=== PATIENT | female | born 1985 | race Caucasian/White ===

== ENCOUNTER 2018-02-08 10:16 | Day surgery (SDC) | payer OTHER, SELFPAY ==
--- NOTE | 2018-02-08 | EMB_PTH ---
PATIENT: NATHANIEL DANGELO LOC: [facility] [place] U#:[id number] AGE/SX: 32/F ROOM: RE02/08/[address]: Dr. Holly Fink MD : [id number] BED: DIS: 02/08/2018 SPEC #: [id number] RECD: 02/08/18 15:04 STATUS: DAMON BUTLERRenee #: [id number] DANA: 02/08/18 00:[address]: Holly Fink DEPT: SURGICAL PATHOLOGY RECD BY: Ramez Forman ENTERED: 02/08/18 15:04 SP TYPE: ENDOM BX/C LOBITO DR: Dr. Mauro An MD Tissues: Endometrium, NOS Procedures: Surgery Specimen Level IV HEADER OPERATION: Hysteroscopy, dilation and curettage, Stacy PRE-OP DIAGNOSIS: Menorrhagia, dysmenorrhea TISSUE SUBMITTED: Endometrial curettings MICROSCOPIC DIAGNOSIS Endometrium, curettings: Rare strips of benign superficial glandular epithelium. AM:jose antonio 02/09/18 COMMENT The specimen primarily consists of mucous. Clinical correlation is suggested. MICROSCOPIC DESCRIPTION Slides are reviewed. GROSS DESCRIPTION Received in fixative is one container labeled with the patient's name and designated endometrial curettings. The specimen consists of multiple fragments of hemorrhagic mucoid tissue that in aggregate measure 2.5 x 2 x 0.2 cm. The entire specimen is submitted in one cassette. / SJ:jose antonio 02/08/18 TC:5 CPT: 45203
[2018-02-08 10:58] LABS: Internal QC Validated? YES +Cl - CLEAR BKGD; Pregnancy, Urine Negative Negative
[2018-02-08 10:59] LABS: Hematocrit 42.1 % (37-47); Hemoglobin 13.9 g/dl (12.0-15.0); Mean Corpuscular Hgb 29.9 pg (27.0-32.0); Mean Corpuscular Volume 90.5 fL (81-99); Mean Platelet Vol. 9.6 fl (6.2-12.0); Platelet Count 232 K/mm3 (150-450); RBC Distribution Width CV 13.1 % (11.6-14.6); RBC Distribution Width SD 42.9 fl (35.1-43.9); Red Blood Count 4.65 M/mm3 (4.2-5.4); White Blood Count 5.4 K/mm3 (4.4-11.0)
[2018-02-08 11:00] LABS: Scan Indicated on CBC? Y/N NO
[2018-02-08 11:11] VITALS: BP 107/83; PULSE 75; RESP 16; TEMP 37.3; O2SAT 100; BMI 20.1
[2018-02-08] MEDS: Acetaminophen 500 MG Tablet 1000 MG PO (11:13)
[2018-02-08] MEDS: Ketorolac 30 MG/ML Syringe 60 MG IM (11:14)
--- NOTE | 2018-02-08 13:18 | DCINST_ITS ---
Discharge Diet: No Restrictions Discharge Activity: Return to Normal Activity, May Shower, May Take a Tub Bath - in 2 weeks. Return to work on:: 02/10/18 May shower in (days): 1 May resume sexual activity in: 3 weeks Call your doctor if your incision/area has: Continuous Slow Oozing, Sudden Increased Bleeding, Foul Smelling Discharge Call your doctor if you observe: Fever of 101 or Higher, Using more than one pad per hour Allergies/Adverse Reactions: Allergies No Known Allergies Allergy (Verified 02/01/18 13:13) Medications to take at Discharge NK 02/01/18 Primary Care Physician: Mauro An MD [Primary Care Provider] - Test Results: Test results from this visit will be discussed in further detail at your follow- up appointment, if applicable. Please Follow Up With: Holly Fink MD - [phone] When: 2-4 weeks or as needed
--- NOTE | 2018-02-08 13:18 | PCM.OPRPT ---
Report of Operation Date of Procedure: 02/08/18 Pre-Operative Diagnosis: menorrhagia, dysmenorrhea Post-Operative Diagnosis: same Surgery/Procedure Performed:: Hysteroscopy dilation and curettage with Stacy endometrial ablation Description of Surgical Findings:: Normal-appearing endometrium. Normal vagina and cervix. channel marketing program manager: Carmen Staples Type of Anesthesia:: MAC/Supplemental/Local Anesthesiologist: Emy Zhou Special Medications: none Specimen's removed: endometrial curettings Drains: none Estimated Blood Loss (mL): 10cc Fluids Replaced: 1000cc LR Description of Procedure: The patient was taken to the OR where she was prepped and draped in dorsal lithotomy position. The weighted speculum was placed in the vagina and the anterior lip of the cervix was grasped with a single-tooth tenaculum. A paracervical block was administered with 1% lidocaine with 1-100,000 epinephrine solution. The cervix was dilated serially with Hegar dilators. The 5mm hysteroscope was placed into the uterine cavity and the above findings were noted. Bilateral tubal ostia were identified. The uterus sounded to 9 cm and the cervical length was 3 cm. The endometrial cavity length was 6 cm. The hysteroscope was removed. A gentle sharp curettage was done of the uterine cavity. The specimen was handed off and sent to pathology. The Stacy device was set to 6 cm. The instrument was then seated into the endometrial cavity and the indicator was in the green. The cervical seal balloon was inflated and the uterine integrity test was passed. The ablation procedure was initiated and completed without interruption. During the ablation procedure gentle traction was held on the tenaculum and the Stacy device was held up against the uterine fundus. When the ablation procedure was completed the Stacy was removed. The tenaculum was removed and the tenaculum site was noted to be hemostatic. All sponge and needle counts were correct. A vaginal sweep was performed by me. The patient was awakened and taken to the recovery room in stable condition. Hysteroscopic ins: 100 cc normal saline Hysteroscopic outs: 50 cc Findings: Endometrial cavity: Normal, no fibroids or polyps noted Cervix: Normal Vagina: Normal Grafts/Implants Used: none - Complications none
[2018-02-08 13:21] VITALS: BP 105/63; BP 107/83; PULSE 75; RESP 16; TEMP 36.5; O2SAT 95
[2018-02-08 13:25] VITALS: BP 103/69; BP 107/83; PULSE 75; RESP 16; O2SAT 97
[2018-02-08 13:30] VITALS: BP 100/69; BP 107/83; PULSE 71; RESP 16; O2SAT 100
[2018-02-08 13:35] VITALS: BP 107/69; BP 107/83; PULSE 68; RESP 16; TEMP 36.9; O2SAT 98
[2018-02-08 14:05] VITALS: BP 107/83
== END 2018-02-08 14:06 | disposition home or self-care (01) ==
LOC: SDC 10:19 → AC 10:19
PROVIDERS: Family Provider Family Medicine; PCP Family Medicine; Referring Provider Obstetrics & Gynecology; Visit Provider Obstetrics & Gynecology
PROC: 0U5B8ZZ Destruction of Endometrium, Via Natural or Artificial Opening Endoscopic (ICD-10-PCS; CPT 58558; principal; 2018-02-08 11:35)
DX: N92.0 Excessive and frequent menstruation with regular cycle (principal); N94.6 Dysmenorrhea, unspecified; N93.9 Abnormal uterine and vaginal bleeding, unspecified; Q23.1 Congenital insufficiency of aortic valve
CPT/HCPCS: 58563; 36415; 81025; 85027; 88305; J7120; J2405

== ENCOUNTER → 2018-07-30 11:09 | Outpatient (CLI) | payer OTHER, SELFPAY ==
[2018-07-30 12:17] LABS: Absolute Lymphocyte Count 1.92 X10^3/ul (0.83-4.51); Basophil# 0.02 X10^3/uL; Basophil% 0.4 % (0-1); Eosinophil# 0.12 X10^3/uL; Eosinophils% 2.2 % (0-5); Hematocrit 42.4 % (37-47); Hemoglobin 14.2 g/dl (12.0-15.0); Lymphocyte # 1.92 X10^3/ul (4.0); Lymphocyte % 35.2 % (19-41); Mean Corp Hgb Conc 33.5 g/gl (32-36); Mean Corpuscular Hgb 29.6 pg (27.0-32.0); Mean Corpuscular Volume 88.3 fL (81-99); Mean Platelet Vol. 10.5 fl (6.2-12.0); Monocyte# 0.43 X10^3/uL; Monocyte% 7.9 % (0-10); Neutrophil # 2.96 X10^3/uL (2.7-7.7); Neutrophil % 54.3 % (47-70); Platelet Count 276 K/mm3 (150-450); RBC Distribution Width CV 13.1 % (11.6-14.6); RBC Distribution Width SD 41.9 fl (35.1-43.9); White Blood Count 5.5 K/mm3 (4.4-11.0)
[2018-07-30 12:22] LABS: POSITIVE COUNT NO; POSITIVE DIFFERENTIAL NO; POSITIVE MORPHOLOGY NO
[2018-07-30 12:45] LABS: Vitamin D,25 Hydroxy 19.6 ng/mL (29.95-100.01)
[2018-07-30 13:10] LABS: Anion Gap 4 (5-15); BUN 14 mg/dL (7-18); BUN/Creat Ratio 15.9 RATIO (10-20); Calcium,Total 8.8 mg/dL (8.5-10.1); Chloride 108 mmol/L (98-107); Creatinine, Serum 0.88 mg/dL (0.55-1.02); EST Glomerular Filtration Rate 79 mL/min (>60); Est Glom Filt Rate - Afr Amer 95 mL/min (>60); Glucose 95 mg/dL (74-106); Sodium Level 140 mmol/L (136-145); Thyroid Stim Hormone (TSH) 2.34 uIU/mL (0.358-3.74)
== END ==
PROVIDERS: PCP Family Medicine; Visit Provider Family Medicine
DX: R53.83 Other fatigue (principal)
CPT/HCPCS: 36415; 80048; 82306; 84443; 85025

== ENCOUNTER → 2018-08-16 15:12 | Outpatient (CLI) | payer OTHER, SELFPAY ==
[2018-08-16 16:06] LABS: Erythrocyte Sedimentation Rate 1 mm/hr (0-20)
[2018-08-16 16:20] LABS: AST(SGOT) 13 U/L (15-37); Alanine Aminotransfer ALT/SGPT 15 U/L (13-56); Albumin, Serum 3.7 g/dL (3.2-5.0); Alkaline Phosphatase 57 U/L (45-117); Bilirubin, Direct 0.11 mg/dL (0.00-0.30); Globulin 3.1 g/dL (2.2-4.2); Protein, Total 6.8 g/dL (6.4-8.2)
[2018-08-20 14:20] LABS: ANTINUCLEAR ANTIBODIES DIRECT Negative (Negative)
== END ==
PROVIDERS: Family Provider Family Medicine; PCP Family Medicine; Referring Provider Family Medicine; Visit Provider Family Medicine
DX: R53.83 Other fatigue (principal)
CPT/HCPCS: 36415; 80076; 85652; 86038

== ENCOUNTER 2018-12-17 17:41 | Emergency (ER) | payer OTHER, SELFPAY ==
[2018-12-17 17:42] VITALS: BP 108/66; PULSE 111; RESP 18; TEMP 38; O2SAT 98
--- NOTE | 2018-12-17 18:09 | EKG12_ITS ---
Test Reason : SYNCOPE Blood Pressure : / mmHG Vent. Rate : 089 BPM Atrial Rate : 089 BPM P-R Int : 154 ms QRS Dur : 078 ms QT Int : 358 ms P-R-T Axes : 066 -05 064 degrees QTc Int : 435 ms Normal sinus rhythm Low Voltage QRS (Limb Leads) ICRBBB Possible Left atrial enlargement Inferior infarct , age undetermined , cannot be excluded Abnormal ECG Confirmed by JASVIR ROWELL, GISELE ([id number]), development editor JANESSA MARTINEZ ([id number]) on 12/19/2018 2:02:07 PM Referred By: TEX Confirmed By:GISELE TYA MD
--- NOTE | 2018-12-17 18:11 | ED.DCSUM_ITS ---
History of Present Illness Chief Complaint: Shortness of Breath Informant: Patient Onset: Today - 0500 Context: Sudden Onset Timing: Continuous Quality: A balloon in my throat Location: Sternoclavicular notch Current Severity: Mild Maximum Severity: Moderate Worsened by: Deep breath Relieved by: Nothing Associated Symptoms: Temperature to 101.4 ?F Narrative: Patient is a 33-year-old woman history of anxiety who presents with fever document 101.4, sensation that a balloon is blown up in her throat and points to the superior sternal notch, and shortness of breath. There is no dysphonia. There is no dysphasia. She denies cough. She denies rhinorrhea, congestion or postnasal drainage. She denies headache, visual or ocular symptoms. She denies neck pain or neck stiffness. She denies ear pain, ringing or ears or drainage from her ears. She denies nausea, vomiting diarrhea. He is a non-smoker. Denies any ill contacts. Prior similar symptoms: No Recent Illness/Hospitalization: No - Past Medical History (1) History of anxiety Status: Acute Past Medical History - Allergies and Home Meds Allergies/Adverse Reactions: Allergies No Known Allergies Allergy (Verified 12/17/18 17:42) Primary Care Physician: Mauro An MD [STAFF PHYSICIAN] - Prior records reviewed: Yes Past Medical History: - - Anxiety Surgical History: no surgical history Lives: Spouse/ Significant Other Smoking Status: Never smoker Alcohol: None Drugs: None Review of Systems General: Reports: Fever. Denies: Chills, Malaise, Sweats Eyes: Denies: Visual changes - bilaterally, Blurred Vision - bilaterally, Diplopia ENT: Reports: - - Foreign body sensation neck. Denies: Bilateral ear pain, Rhinorrhea, Sore throat Cardiovascular: Denies: Chest pain, Palpitations, Heart racing Respiratory: Reports: Dyspnea. Denies: Cough, Dyspnea on exertion, Orthopnea, Paroxysmal nocturnal dyspnea Gastrointestinal: Denies: Abdominal pain, Nausea, Vomiting, Diarrhea, Melena, Hematochezia Musculoskeletal: Denies: Back pain, Extremity Pain Skin: Denies: Rash, Wounds Neurological: Reports: Weakness, Parasthesia - Both hands and both knees Psych: Reports: Anxiety - History of Endocrine: Denies: Polyuria, Polydipsia Hematologic: Denies: Easy bruising, Easy bleeding Allergy: Denies: Uticaria, Swelling of the mouth, Swelling of the tongue Physical Exam Vital Signs/Narrative: Vital Signs Temp Pulse Resp BP Pulse Ox 12/17/18 17:42 100.4 F H 111 H 18 108/66 98 Inital Vital Signs reviewed: Yes - She is tachypnic with deep breaths. General: Well nourished, Well developed, No Acute Distress Head: Normocephalic, Atraumatic Eyes: Perrl, EOMI. Negative for: Pale conjunctiva, Scleral icterus ENT: Moist mucous membranes, No rhinorrhea, TM's clear Neck: Supple, Nontender, No lymphadenopathy, No JVD, - - Trachea is midline. There is no stridor. Cardiovascular: Regular rhythm, No murmurs, Normal S1, Normal S2, Tachycardia Respiratory: No distress, CTA bilaterally, Chest nontender Abdomen: Soft, Nontender, Nondistended, Normal bowel sounds Back: Nontender, Normal Inspection Extremities: Nontender, No edema Skin: Normal color, No rash Neurological: Alert, Oriented x3, Cranial nerves II-XII grossly intact, Normal Strength, Normal Sensation, - - Patient has a positive's Chvostek sign bilaterally Psychological: Normal affect Diagnostic/Tx/Re-eval Chest X-Ray - ED: 2 View, Read by ED Physician, - - Tissue the neck reveals no evidence of prevertebral abscess. Epiglottis is normal. Vallecula is normal. There is no lingular tonsil enlargement. There is no narrowing of the trachea or airway that is visualized. There is no masses noted in the neck. There is no subcutaneous air noted. The top portion of the lungs appear normal. Impressions Soft Tissue Neck X-Ray 12/17/18 18:50 IMPRESSION: Questionable mild thickening of the epiglottis versus motion artifact. Repeat lateral view may be of value if needed. Electronically Signed: Matias Chavez DO at 19:06 EDT Tel [phone], Service support , 12/17/18 18:50 Neck for Soft Tissue [RAD] Stat Laboratory Results 12/17/18 12/17/18 18:15 18:15 WBC 11.5 H RBC 4.57 Hgb 13.8 Hct 40.3 MCV 88.2 MCH 30.2 MCHC 34.2 RDW Std Deviation 40.9 RDW Coeff of Lakshmi 12.5 Plt Count 205 MPV 9.7 Immature Gran % (Auto) 0.400 Neut % (Auto) 87.9 H Lymph % (Auto) 6.6 L [place] % (Auto) 3.5 Eos % (Auto) 1.3 Baso % (Auto) 0.3 Absolute Neuts (auto) 10.1 H Absolute Lymphs (auto) 0.76 L Nucleated RBC % 0 Sodium 136 Potassium 3.4 L Chloride 104 Carbon Dioxide 24.0 Anion Gap 8 BUN 10 Creatinine 0.99 Estim Creat Clear Calc 76.40 Est GFR (MDRD) Af Amer 83 Est GFR (MDRD) Non-Af 68 BUN/Creatinine Ratio 10.1 Glucose 109 H Calcium 9.1 Patient's work-up is unremarkable. She was reassessed at 1920. She still is hyperventilating. Etiology is unknown. She still complaining of paresthesia. We will have her breathe into a brown paper bag. Will reassess in 10 to 15 minutes. She states she feels more relaxed after the 0.5 mg of Ativan. - EKG Initial EKG Interpretation: Sinus Rhythm - Sinus rhythm with a ventricular rate 89. [place] interval is 154 ms. QS duration 78 ms. QT duration 3 and 58 ms. [facility] is normal. Computer is reading inferior infarct of undetermined age. There is artifact secondary to her breathing. EKG was obtained per nurse protocol. - Medical Decision Making Since patient complains of poor body sensation has documented fever will obtain soft tissue x-ray of the neck to assess for epiglottitis. With bilateral paresthesia, bilateral's Chvostek sign and the fact that she is breathing fast and deeply she has findings consistent with hyperventilation syndrome. Need to determine why she is hyperventilating. For this reason a CBC and basic metabolic panel was obtained. Was medicated with 0.5 mg of Ativan IV push. He was reassessed at 2100 after she was instructed to bring in the brown paper bag. Her symptoms resolved. Patient was told she has hyperventilation syndrome. The etiology is unknown. Recommended follow-up with her primary care physician. ED Disposition - Plan for ED Patient: Disposition: Home or Assisted Living Diagnosis: Acute hyperventilation syndrome Instructions: Hyperventilation Syndrome Referrals: Mauro An MD [STAFF PHYSICIAN] - 3-5 Days if not improving
[2018-12-17 18:25] LABS: Absolute Lymphocyte Count 0.76 X10^3/uL (0.83-4.51); Absolute Neutrophil Count 10.1 X10^3/uL (2.0-7.7); Basophil# 0.03 X10^3/uL; Basophil% 0.3 % (0-1); Eosinophil# 0.15 X10^3/uL; Eosinophils% 1.3 % (0-5); Hematocrit 40.3 % (37-47); Hemoglobin 13.8 g/dL (12.0-15.0); Lymphocyte # 0.76 X10^3/ul (4.0); Lymphocyte % 6.6 % (19-41); Mean Corp Hgb Conc 34.2 g/dL (32-36); Mean Corpuscular Hgb 30.2 pg (27.0-32.0); Mean Corpuscular Volume 88.2 fL (81-99); Mean Platelet Vol. 9.7 fl (6.2-12.0); Monocyte% 3.5 % (0-10); NRBC Flagged by Analyzer 0 % (0-5); Neutrophil # 10.09 X10^3/uL (2.7-7.7); Neutrophil % 87.9 % (47-70); Platelet Count 205 K/mm3 (150-450); RBC Distribution Width CV 12.5 % (11.6-14.6); RBC Distribution Width SD 40.9 fl (35.1-43.9); Red Blood Count 4.57 M/mm3 (4.2-5.4); White Blood Count 11.5 K/mm3 (4.4-11.0)
[2018-12-17] MEDS: LORazepam 2 MG/ML Syringe 0.5 MG IV (18:37)
[2018-12-17 18:41] LABS: Anion Gap 8 (5-15); BUN 10 mg/dL (7-18); BUN/Creat Ratio 10.1 RATIO (10-20); Calcium,Total 9.1 mg/dL (8.5-10.1); Chloride 104 mmol/L (98-107); Creatinine, Serum 0.99 mg/dL (0.55-1.02); EST Glomerular Filtration Rate 68 mL/min (>60); Est Glom Filt Rate - Afr Amer 83 mL/min (>60); Glucose 109 mg/dL (74-106); Potassium 3.4 mmol/L (3.5-5.1); Sodium Level 136 mmol/L (136-145)
--- NOTE | 2018-12-17 18:50 | RAD_ITS ---
STUDY: X-RAY - SOFT TISSUE NECK REASON FOR EXAM: Female, 33 years old. Dizziness TECHNIQUE: 3 view(s) of the neck were obtained. COMPARISON: None. FINDINGS: Normal visualized nasopharynx, oropharynx, hypopharynx. Questionable mild thickening of the epiglottis versus motion artifact. Normal visualized subglottic tracheal air column. Normal prevertebral soft tissue structures. Normal visualized osseous structures. The soft tissue structures are unremarkable. RAD/Neck for Soft Tissue IMPRESSION: Questionable mild thickening of the epiglottis versus motion artifact. Repeat lateral view may be of value if needed. Electronically Signed: Matias Chavez DO at 19:06 EDT Tel [phone], Service support ,
[2018-12-17 19:25] VITALS: BP 107/71; PULSE 72; RESP 17; TEMP 36.9; O2SAT 100
--- NOTE | 2018-12-17 19:31 | ED.RN ---
PRIOR TO LACING PT ON A NRB PER DR BARKLEY FOR HER RAPID BREATHING SHE WAS BREATHING 30-40 X A MIN. EXPLAINED TO PT THAT SHE WAS HYPERVENTILATING. PT HAD C/O HANDS AND LEGS TINGLING. SHORTLY THERE AFTER PT SEEMS TO BREATHING EASIER AND MORE RELAXED AT THIS TIME. PHYSICIAN AWARE OF CURRENT STATUS.
[2018-12-17 20:00] VITALS: BP 97/66; PULSE 96; RESP 16; O2SAT 99
[2018-12-17 21:08] VITALS: BP 99/66; PULSE 93; RESP 18; O2SAT 96
[2018-12-17 21:10] VITALS: BP 99/6; PULSE 93; RESP 18; O2SAT 96
== END 2018-12-17 21:16 | disposition home or self-care (01) ==
PROVIDERS: Emergency Provider Emergency Medicine; Family Provider Family Medicine; PCP Family Medicine
DX: F45.8 Other somatoform disorders (principal); F41.9 Anxiety disorder, unspecified
CPT/HCPCS: 70360; 80048; 85025; 93005; 96374; 99284; A4216

== ENCOUNTER → 2022-06-22 | Outpatient (CLI) | payer OTHER, SELFPAY ==
--- NOTE | 2022-06-22 12:44 | ECHOD_ITS ---
Reason For Study: Bicuspid AV Procedure This was a 2D Doppler, Color Flow transthoracic echocardiogram. Technically difficult study due to breast implants. Exam performed in department. Left Ventricle Normal LV size. Left ventricular systolic function is normal. The estimated ejection fraction is 55 %. No regional wall motion abnormalities noted. Right Ventricle Normal RV size. Normal systolic function. Atria Normal left atrium. Normal right atrium. Mitral Valve Normal mitral valve. Tricuspid Valve Normal tricuspid valve. Trivial tricuspid valve insufficiency. Aortic Valve Bicuspid aortic valve. There is no aortic stenosis. Pulmonic Valve Normal pulmonic valve. Trivial pulmonic valve insufficiency. Great Vessels Normal aortic root. The pulmonary artery is normal size. Normal inferior vena cava. Pericardium/Pleural No pericardial effusion. MMode/2D Measurements & Calculations LVIDd: 4.8 cm IVSd: 0.93 cm LVOT diam: 2.0 cm LVIDs: 3.2 cm LVPWd: 0.81 cm LVOT area: 3.2 cm2 RVDd: 3.3 cm FS: 32.0 % Ao root diam: 3.3 cm LAV(MOD-bp): 38.7 ml LA A4 area: 16.5 cm2 LA dimension: 2.6 cm LAV(MOD-bp) Indexed: 20.6 ml/m2 LAV(MOD-sp2): 32.4 ml LAV(MOD-sp4): 43.6 ml RA A4 area: 15.0 cm2 Time Measurements MV dec time: 0.17 sec Doppler Measurements & Calculations MV E max viraj: 90.6 cm/sec Lat Peak E' Viraj: 19.3 cm/sec Med Peak E' Viraj: 13.4 cm/sec MV A max viraj: 64.3 cm/sec E/E' lat: 4.7 E/E' med: 6.8 MV E/A: 1.4 MV V2 max: 114.8 cm/sec MV dec slope: 551.4 cm/sec2 Ao V2 max: 137.5 cm/sec MV max P.3 mmHg Ao max P.6 mmHg MV V2 mean: 53.0 cm/sec Ao V2 mean: 99.2 cm/sec MV mean P.4 mmHg Ao mean P.5 mmHg MV V2 VTI: 33.6 cm Ao V2 VTI: 34.5 cm MVA(VTI): 2.2 cm2 AV (velocity ratio): 0.65 IRAIS(I,D): 2.1 cm2 IRAIS(V,D): 2.2 cm2 LV V1 max: 91.8 cm/sec SV(LVOT): 72.8 ml PA V2 max: 65.1 cm/sec LV V1 max P.4 mmHg LV V1 mean P.9 mmHg LV V1 mean: 64.6 cm/sec LV V1 VTI: 22.5 cm TR max viraj: 212.4 cm/sec TR max P.0 mmHg ECHO/Echo Complete Interpretation Summary Normal LV size. Left ventricular systolic function is normal. The estimated ejection fraction is 55 %. Trivial tricuspid valve insufficiency. Bicuspid aortic valve. There is no aortic stenosis. Ordering Physician: Houston King Referring Physician: Michelle Govea M.D. Performed By: Lakhwinder Lan RCS
== END | disposition home or self-care (01) ==
LOC: CVS 12:42
PROVIDERS: PCP Family Medicine; Referring Provider Internal Medicine Cardiovascular Disease; Visit Provider Internal Medicine Cardiovascular Disease
DX: Q23.1 Congenital insufficiency of aortic valve (principal)
CPT/HCPCS: 93306